=== PATIENT | female | born 1940 | race Caucasian/White ===

== ENCOUNTER 2017-03-28 16:40 | Emergency (ER) | payer MEDICARE, BC ==
[2017-03-28 15:18] LABS: BASOPHILS 0 %; EOSINOPHILS 1.4 %; EOSINOPHILS ABSOLUTE 0.06 10/3/uL (0.0-0.53); HEMATOCRIT 34.7 % (36.0-48.0); HEMOGLOBIN 11.4 g/dL (12.0-16.0); IMMATURE GRANULOCYTES 0.7 %; IMMATURE GRANULOCYTES ABSOLUTE 0.03 10/3/uL (0.0-0.11); LYMPHOCYTES ABSOLUTE 1.22 10/3/uL (0.67-4.30); MANUAL DIFF NO %; MEAN CORPUS HGB CONC 32.9 g/dL (32.0-36.0); MEAN CORPUSCULAR HEMOGLOB 30.6 pg (26.0-34.0); MEAN PLATELET VOLUME 9.7 fL (9.2-13.0); MONOCYTES 10.6 %; MONOCYTES ABSOLUTE 0.46 10/3/uL (0.21-1.20); NEUTROPHILS 59.3 %; NEUTROPHILS ABSOLUTE 2.59 10/3/uL (2.02-8.40); PLATELET COUNT 114 10/3/uL (150-400); RBC DISTRIBUTION WIDTH 14.9 % (12.0-16.0); RED CELL COUNT 3.73 10/6/uL (4.0-5.6); WHITE BLOOD CELLS 4.4 10/3/uL (4.5-10.5)
[2017-03-28 15:25] LABS: PARTIAL THROMBO TIME 31.9 SEC (22.5-37.2); PROTIME (NOT ORD) 13.5 SEC (12.0-14.5)
[2017-03-28 15:35] LABS: BUN (BLOOD UREA NITROGEN) 14 MG/DL (6-23); CALCIUM, SERUM 9.5 MG/DL (8.5-10.4); CHEST PAIN PROFILE TAT 0 Hrs 21 Mins; CHLORIDE, SERUM 104 MMOL/L (96-112); CO2 (CARBON DIOXIDE) 30 MMOL/L (24-34); CREATININE 0.82 MG/DL (0.55-1.02); GFR AFRICAN AMERICAN 81 ML/MIN (>=60); GFR NON AFRICAN AMERICAN 70 ML/MIN (>=60); GLUCOSE, SERUM 90 MG/DL (60-99); POTASSIUM, SERUM 3.6 MMOL/L (3.5-5.3); SODIUM, SERUM 140 MMOL/L (135-148); TROPONIN I <0.02 NG/ML (<0.05)
[2017-04-09] MEDS ORDERED: Z-PAK PO (18:33)
[2017-04-09] MEDS ORDERED: TREXALL15 MG PO (18:34)
[2017-04-09] MEDS ORDERED: LOP25 PO (18:34)
[2017-04-09] MEDS ORDERED: AMB10 PO (18:35)
[2017-04-09] MEDS ORDERED: CATAPRES2 TOP (18:35)
[2017-04-09] MEDS ORDERED: ZESTRIL30 MG PO (18:35)
[2017-04-09] MEDS ORDERED: ZOCOR40 PO (18:36)
[2017-04-09] MEDS ORDERED: FOLIC PO (18:36)
[2017-04-09] MEDS ORDERED: FISH-EPA1000 MG PO (18:37)
[2017-04-09] MEDS ORDERED: VITAMIN D1000 UNI1 PO (18:37)
[2017-04-09] MEDS ORDERED: CIMZIA SC (18:37)
[2017-04-09] MEDS ORDERED: ACET500CAP PO (18:38)
[2017-04-10] MEDS ORDERED: CATPATCH1 TOP (15:43)
== END 2017-03-28 17:30 | disposition home or self-care (01) ==
LOC: ER 16:40
PROVIDERS: Emergency Medicine
DX: R00.0 Tachycardia, unspecified (principal); I49.1 Atrial premature depolarization; I10 Essential (primary) hypertension
CPT/HCPCS: 71010; 71275; 80048; 83735; 84484; 85025; 85610; 85730; 93005; 99285; Q9967